=== PATIENT | female | born 1945 | race Hispanic/Latino ===

== ENCOUNTER 2016-12-27 05:52 | Emergency (ER) | payer MEDICARE, MEDICAID ==
[2016-12-27 05:56] VITALS: TEMP 98.9
[2016-12-27 05:59] VITALS: BMI 21.7
--- NOTE | 2016-12-27 06:17 | ED PDOC ---
Arrival/HPI - General Chief Complaint: Trauma Time Seen by Provider: 12/27/16 06:02 Historian: Snf - History of Present Illness Narrative History of Present Illness (Text): 12/27/16 06:13 Zeina Corado is a 71 year old female, whose past medical history includes bilateral BKA, CABG, CAD, dementia, anemia, chronic kidney disease, blindness, and depression, who presents to the Emergency department transferred from the halfway status post unwitnessed fall. As per halfway documentation, patient was found on the floor, unknown if there was any loss of consciousness. Patient is confused as to what happened, states she believes she fell "because the floor was slippery." Patient reports some discomfort to her left knee, denies any other complaints. Limited HPI and ROS secondary to patient's dementia. Time/Duration: Other (tonight) Symptom Onset: Gradual Symptom Course: Unchanged Activities at Onset: Light Context: Other (snf) Past Medical History - Provider Review Nursing Documentation Reviewed: Yes - Infectious Disease Hx of Infectious Diseases: None - Reproductive Menopause: Yes - Cardiac Hx Cardiac Disorders: Yes Hx Angina: Yes Hx Congestive Heart Failure: Yes Hx VT: Yes Hx Hypertension: Yes - Pulmonary Hx Respiratory Disorders: No - Neurological Hx Neurological Disorder: Yes (DM neuropathy) - HEENT Hx Blind: Yes (both eyes) Hx Cataracts: Yes Hx Glaucoma: Yes Other/Comment: Retinal Detachment - Renal Hx Renal Disorder: No - Endocrine/Metabolic Hx Diabetes Mellitus Type 2: Yes - Hematological/Oncological Hx Blood Disorders: No Hx Anemia: Yes - Integumentary Hx Dermatological Disorder: No - Musculoskeletal/Rheumatological Hx Arthritis: Yes - Gastrointestinal Hx Gastrointestinal Disorders: No - Genitourinary/Gynecological Hx Genitourinary Disorders: No - Psychiatric Hx Psychophysiologic Disorder: No Hx Depression: Yes Hx Substance Use: No - Surgical History Hx Coronary Artery Bypass Graft: Yes (x 2, 6-7weeks ago) Other/Comment: s/p BKA L and R leg - Anesthesia Hx Anesthesia: Yes Hx Anesthesia Reactions: No Hx Malignant Hyperthermia: No - Suicidal Assessment Feels Threatened In Home Enviroment: No Family/Social History - Physician Review Nursing Documentation Reviewed: Yes Family/Social History: Unknown Family HX Smoking Status: Never Smoked Hx Alcohol Use: No Hx Substance Use: No Allergies/Home Meds Allergies/Adverse Reactions: Allergies No Known Allergies Allergy (Verified 12/27/16 06:08) Home Medications: Home Meds Medication Instructions Recorded Confirmed Aspirin 81 mg PO DAILY 07/25/13 10/31/13 Lopressor 50 mg PO Q12H 07/25/13 10/31/13 Multivitamin 1 tab PO DAILY 07/25/13 10/31/13 Timolol 0.5% Ophth 1 drop OU DAILY 07/25/13 10/31/13 Xalatan Opht 1 drop OU DAILY 07/25/13 10/31/13 Xeroform Gauze 1 dose TOP DAILY 07/25/13 10/31/13 Ascorbic Acid 500 mg PO DAILY 08/31/13 10/31/13 Brimonidine 0.2% [Alphagan 0.2% 1 drop OU DAILY 08/31/13 10/31/13 Opht] Cyproheptadine HCl 4 mg PO HS 08/31/13 10/31/13 Docusate Sodium [Colace] 100 mg PO BID PRN 08/31/13 10/31/13 Famotidine [Pepcid] 20 mg PO DAILY 08/31/13 10/31/13 Latanoprost 0.005% Opht [Xalatan 1 drop OU HS 08/31/13 10/31/13 Opht] Metoprolol Tartrate 50 mg PO Q12 08/31/13 10/31/13 Milk Of Magnesia 30 ml PO Q24H PRN 08/31/13 10/31/13 Multivitamin with Minerals 1 tab PO DAILY 08/31/13 10/31/13 [Multivitamins with Minerals] Rosuvastatin Calcium [Crestor] 10 mg PO HS 08/31/13 10/31/13 Acetaminophen [Tylenol] 325 mg PO Q4H PRN 09/01/13 10/31/13 Acetaminophen [Tylenol] 325 mg PO Q4H PRN 09/01/13 10/31/13 Calcium Acetate [Phoslo] 667 mg PO DAILY 09/01/13 10/31/13 Famotidine [Pepcid] 20 mg PO DAILY 09/01/13 10/31/13 Rivaroxaban [Xarelto] 20 mg PO DAILY 09/01/13 10/31/13 Tramadol Hydrochloride [Tramadol 50 mg PO Q6 PRN 09/01/13 10/31/13 HCl] Review of Systems - Review of Systems Systems not reviewed;Unavailable: Dementia Musculoskeletal: Arthralgias (+left knee discomfort) Physical Exam Vital Signs Reviewed: Yes Vital Signs Temp Pulse Resp BP Pulse Ox 12/27/16 05:55 98.9 F 66 18 174/86 H 97 Temperature: Afebrile Blood Pressure: Hypertensive Pulse: Regular Respiratory Rate: Normal Appearance: Positive for: Well-Appearing, Non-Toxic, Comfortable Pain Distress: None Mental Status: Positive for: Confused - Systems Exam Head: Present: Atraumatic, Normocephalic Pupils: Present: Other (Bilateral blindness) Extroacular Muscles: Present: EOMI Conjunctiva: Present: Normal Mouth: Present: Moist Mucous Membranes Neck: Present: Normal Range of Motion. No: Meningeal Signs, MIDLINE TENDERNESS , Paraspinal Tenderness Respiratory/Chest: Present: Clear to Auscultation, Good Air Exchange. No: Respiratory Distress, Accessory Muscle Use Cardiovascular: Present: Regular Rate and Rhythm, Normal S1, S2. No: Murmurs Abdomen: Present: Normal Bowel Sounds. No: Tenderness, Distention, Peritoneal Signs Upper Extremity: Present: Normal Inspection. No: Cyanosis, Edema Lower Extremity: Present: NORMAL PULSES, Normal ROM, Neurovascularly Intact, Capillary Refill < 2 s, Other (Bilateral BKA, contusion to left knee). No: Edema Neurological: Present: GCS=15, CN II-XII Intact, Speech Normal Skin: Present: Warm, Dry, Normal Color. No: Rashes Psychiatric: Present: Other (Confused) Medical Decision Making ED Course and Treatment: 12/27/16 06:13 Impression: 71 year old female sent from halfway s/p unwitnessed fall tonight. Plan: -- CT Head w/o contrast -- EKG -- Chest X-ray -- XR Left Knee -- Labs, cardiac enzymes -- Reassess and disposition Progress Notes: Reviewed EKG, NSR at 65 bpm. RBBB. Inferior infarct. Non-specific ST/T wave changes. - RAD Interpretation Radiology Orders: 12/27/16 06:31 HEAD W/O CONTRAST [CT] Stat CHEST PORTABLE [RAD] Stat 12/27/16 06:32 KNEE WITH PATELLA LEFT 3 VIEW [RAD] Stat - EKG Interpretation Interpreted by ED Physician: Yes Type: 12 lead EKG - Transfer of Care Patient signed out to Dr:: Tolerico Pending Labs:: Labs/Chest X-ray/CT Head/Knee xray/reassess/final disposition - Scribe Statement The provider has reviewed the documentation as recorded by the Darekibaugusto Valentin Provider Scribe Attestation: All medical record entries made by the Scribe were at my direction and personally dictated by me. I have reviewed the chart and agree that the record accurately reflects my personal performance of the history, physical exam, medical decision making, and the department course for this patient. I have also personally directed, reviewed, and agree with the discharge instructions and disposition. Disposition/Present on Arrival - Present on Arrival Any Indicators Present on Arrival: No History of DVT/PE: No History of Uncontrolled Diabetes: No Urinary Catheter: No History of Decub. Ulcer: No History Surgical Site Infection Following: None - Disposition Have Diagnosis and Disposition been Completed?: No Diagnosis: Unwitnessed fall Disposition Time: 07:00 Condition: STABLE Referrals: Erin Simon MD [Primary Care Provider] - Follow up with primary Forms: [employer] (Chinese)
[2016-12-27 06:43] LABS: HEMATOCRIT 33.9 % (36.0-48.0); MEAN CELL VOLUME 99.1 fl (80.0-105.0); MEAN CORPUSCULAR HEMOGLOBIN 32.5 pg (25.0-35.0); MEAN CORPUSCULAR HGB CONC 32.7 g/dl (31.0-37.0); MEAN PLATELET VOLUME 11.8 fl (7.0-11.0); RED CELL DISTRIBUTION WIDTH 12.4 % (11.5-14.5); WHITE BLOOD COUNT 10.8 10^3/ul (4.5-11.0)
[2016-12-27 06:46] LABS: ALB/GLOB RATIO 1.1 (1.1-1.8); ALKALINE PHOSPHATASE 47 U/L (38-126); ALT/SGPT 22 U/L (7-56); AST/SGOT 23 U/L (14-36); BILIRUBIN,TOTAL 0.5 mg/dL (0.2-1.3); BLOOD UREA NITROGEN 46 mg/dL (7-21); CALCIUM 9.5 mg/dL (8.4-10.5); CARBON DIOXIDE 24 mmol/L (21-33); CHLORIDE 110 mmol/L (98-107); GFR AFRICAN-AMERICAN 49; GLUCOSE,RANDOM 177 mg/dL (70-110); POTASSIUM 4.7 mmol/L (3.6-5.0); SODIUM 144 mmol/L (132-148); TOTAL PROTEIN 7.9 g/dL (5.8-8.3)
[2016-12-27 06:52] LABS: INR 0.95 (0.93-1.08)
[2016-12-27 06:53] LABS: PARTIAL THROMBOPLASTIN TIME 31.7 Seconds (25.1-36.5)
[2016-12-27 06:57] LABS: TROPONIN I < 0.01 ng/mL
--- NOTE | 2016-12-27 08:35 | CT ---
PROCEDURE: CT HEAD WITHOUT CONTRAST. HISTORY: fall COMPARISON: None available. TECHNIQUE: Axial computed tomography images were obtained through the head/brain without intravenous contrast. Radiation dose: Total exam DLP = 775.01 mGy-cm. This CT exam was performed using one or more of the following dose reduction techniques: Automated exposure control, adjustment of the mA and/or kV according to patient size, and/or use of iterative reconstruction technique. FINDINGS: HEMORRHAGE: No intracranial hemorrhage. BRAIN: No mass effect or edema. Mild atrophy. Mild periventricular white matter lucency consistent with chronic microvascular ischemic change. Small lacunar infarct in the right frontal yañez radiata. No evidence of acute infarct. VENTRICLES: Unremarkable. No hydrocephalus. CALVARIUM: Unremarkable. PARANASAL SINUSES: Air-fluid level in the sphenoid sinuses. Please correlate for any concern regarding acute sphenoid sinusitis. MASTOID AIR CELLS: Unremarkable as visualized. No inflammatory changes. OTHER FINDINGS: None. IMPRESSION: No intracranial mass, hemorrhage or evidence of acute infarct. Possible sphenoid sinusitis. Please correlate clinically. Chronic white matter ischemic change. Age-appropriate atrophy. Preliminary interpretation of this examination was reported by [facility] at 8:14 a.m. on 12/27/2016. There is concurrence of this report with the preliminary interpretation.
[2016-12-27 08:41] VITALS: PULSE 64; O2SAT 98
--- NOTE | 2016-12-27 08:43 | RAD ---
HISTORY: fall COMPARISON: No prior. FINDINGS: LUNGS: No active pulmonary disease. PLEURA: No significant pleural effusion identified, no pneumothorax apparent. CARDIOVASCULAR: Status post CABG. Normal heart size. No congestive change. OSSEOUS STRUCTURES: No significant abnormalities. VISUALIZED UPPER ABDOMEN: Normal. OTHER FINDINGS: None. IMPRESSION: No active disease.
--- NOTE | 2016-12-27 08:44 | RAD ---
PROCEDURE: Left Knee Radiographs. HISTORY: Pain. COMPARISON: None. FINDINGS: BONES: Patient is status post amputation of the lower extremity below the knee. There is no osseous fracture. JOINTS: Normal. No osteoarthritis. JOINT EFFUSION: None. OTHER FINDINGS: Extensive vascular calcification is noted. IMPRESSION: Status post left BKA. No acute abnormality.
[2016-12-27 10:02] VITALS: BP 145/72; RESP 12
--- NOTE | 2016-12-27 14:53 | CARD ---
APPROVED REPORT EKG Measurement Heart [id number] [id number] <Conclusion> Normal sinus rhythm Right bundle branch block Inferior infarct, age undetermined Abnormal ECG
== END 2016-12-27 10:05 | disposition home or self-care (01) ==
LOC: ED 05:52
DX: Z04.3 Encounter for examination and observation following other accident (principal); W19.XXXA Unspecified fall, initial encounter; Y92.129 Unspecified place in nursing home as the place of occurrence of the external cause; I25.2 Old myocardial infarction; I10 Essential (primary) hypertension; E11.9 Type 2 diabetes mellitus without complications; Z89.512 Acquired absence of left leg below knee; Z89.511 Acquired absence of right leg below knee

== ENCOUNTER 2017-06-18 04:29 | Emergency (ER) | payer MEDICARE, MEDICAID ==
[2017-06-18 04:31] VITALS: BMI 41.8
--- NOTE | 2017-06-18 05:27 | ED PDOC ---
Arrival/HPI - General Historian: Patient - History of Present Illness Time/Duration: Prior to Arrival Symptom Onset: Sudden Symptom Course: Unchanged <Medhat Peguero - Last Filed: 06/18/17 06:49> <Elder Juarez - Last Filed: 06/18/17 07:02> - General Chief Complaint: Trauma Time Seen by Provider: 06/18/17 04:35 - History of Present Illness Narrative History of Present Illness (Text): 06/18/17 05:25 71 F with B/L BKA with history of fall from bed in past,past medical history includes bilateral BKA, CABG, CAD, dementia, anemia, CKD, blindness of right eye , depression presents today with complaints of fall. Patient states she did not lose consciousness and was awake entire time fall was occurring. Patient is not exactly certain on how the fall happened in the first place, states she possibly rolled over or due to being near the edge of the bed when she turned, caused her to fall. Patient admits to left sided hip discomfort. Patient also endorses lower back pain. Denies loss of consciousness, dizziness, weakness, shortness of breath. (Medhat Peguero) Past Medical History - Provider Review Nursing Documentation Reviewed: Yes - Infectious Disease Hx of Infectious Diseases: None - Cardiac Hx Cardiac Disorders: Yes Hx Angina: Yes Hx Congestive Heart Failure: Yes Hx ID: Yes Hx Hypertension: Yes - Pulmonary Hx Respiratory Disorders: No - Neurological Hx Neurological Disorder: Yes (DM neuropathy) - HEENT Hx Blind: Yes - Renal Hx Renal Disorder: No - Endocrine/Metabolic Hx Diabetes Mellitus Type 2: Yes - Hematological/Oncological Hx Blood Disorders: No Hx Anemia: Yes - Integumentary Hx Dermatological Disorder: No - Musculoskeletal/Rheumatological Hx Arthritis: Yes - Gastrointestinal Hx Gastrointestinal Disorders: No - Genitourinary/Gynecological Hx Genitourinary Disorders: No - Psychiatric Hx Psychophysiologic Disorder: No Hx Depression: Yes Hx Substance Use: No - Surgical History Other/Comment: s/p BKA L leg - Anesthesia Hx Anesthesia: Yes Hx Anesthesia Reactions: No Hx Malignant Hyperthermia: No - Suicidal Assessment Feels Threatened In Home Enviroment: No <Medhat Peguero - Last Filed: 06/18/17 06:49> Family/Social History - Physician Review Nursing Documentation Reviewed: Yes Family/Social History: Other (non-contributory) Smoking Status: Never Smoked Hx Alcohol Use: No Hx Substance Use: No <Medhat Peguero - Last Filed: 06/18/17 06:49> Allergies/Home Meds <Medhat Peguero - Last Filed: 06/18/17 06:49> <Elder Juarez - Last Filed: 06/18/17 07:02> Allergies/Adverse Reactions: Allergies No Known Allergies Allergy (Verified 12/27/16 06:08) Home Medications: Home Meds Medication Instructions Recorded Confirmed Acetaminophen [Tylenol 325mg tab] 650 mg PO Q4 PRN 12/27/16 12/27/16 Atorvastatin [Lipitor] 40 mg PO HS 12/27/16 12/27/16 Cholecalciferol (Vitamin D3) 50,000 unit PO WED 12/27/16 12/27/16 [Vitamin D3] Docusate Sodium [Xavier' Stool 200 mg PO DAILY 12/27/16 12/27/16 Softener Laxative] Insulin Lispro [humALOG] 100 unit SC BRKDIN 12/27/16 12/27/16 Latanoprost 0.005% Opht [Xalatan 1 drop OD HS 12/27/16 12/27/16 Opht] Magnesium Hydroxide [Milk Of 30 ml PO HS 12/27/16 12/27/16 Magnesia] Metoclopramide HCl [Reglan] 5 mg PO QID 12/27/16 12/27/16 Metoprolol Tartrate [Lopressor] 50 mg PO BID 12/27/16 12/27/16 Mirtazapine [Remeron] 15 mg PO HS 12/27/16 12/27/16 Pantoprazole [Protonix] 40 mg PO DAILY 12/27/16 12/27/16 Sennosides [Senna] 17.2 mg PO HS 12/27/16 12/27/16 Sertraline [Zoloft] 75 mg PO DAILY 12/27/16 12/27/16 Review of Systems - Physician Review All systems were reviewed & negative as marked: Yes - Review of Systems Constitutional: Normal. absent: Fatigue, Fevers Eyes: Normal. absent: Vision Changes ENT: Normal Respiratory: Normal. absent: SOB, Cough Cardiovascular: Normal. absent: Chest Pain, Palpitations Gastrointestinal: Normal. absent: Abdominal Pain, Diarrhea Musculoskeletal: Back Pain. absent: Neck Pain Neurological: Normal. absent: Headache, Dizziness, Focal Weakness Psychiatric: absent: Anxiety <Medhat Peguero - Last Filed: 06/18/17 06:49> Physical Exam Vital Signs Reviewed: Yes Temperature: Afebrile Blood Pressure: Hypertensive Pulse: Regular Respiratory Rate: Normal Appearance: Positive for: Well-Appearing, Non-Toxic, Comfortable Pain Distress: None Mental Status: Positive for: Alert and Oriented X 3 - Systems Exam Head: Present: Atraumatic, Normocephalic Pupils: Present: PERRL Extroacular Muscles: Present: EOMI Conjunctiva: Present: Normal Mouth: Present: Moist Mucous Membranes Nose (External): Present: Atraumatic Respiratory/Chest: Present: Clear to Auscultation, Good Air Exchange Cardiovascular: Present: Regular Rate and Rhythm Abdomen: No: Tenderness, Distention, Normal Bowel Sounds Upper Extremity: Present: Normal Inspection Lower Extremity: No: Normal Inspection (bilateral bka) Neurological: Present: GCS=15, CN II-XII Intact, Speech Normal Psychiatric: Present: Alert, Oriented x 3, Normal Insight, Normal Concentration <Medhat Peguero - Last Filed: 06/18/17 06:49> Vital Signs Temp Pulse Resp BP Pulse Ox 06/18/17 04:30 98.5 F 57 L 18 181/63 H 100 Medical Decision Making Re-evaluation Time: 06:20 <Medhat Peguero - Last Filed: 06/18/17 06:49> <Elder Juarez - Last Filed: 06/18/17 07:02> ED Course and Treatment: Patient states she feels fine just has some mild hip discomfort. Radioimaging negative for fractures. 06/18/17 06:38 (Medhat Peguero) 06/18/17 05:29 Zeina Corado is a 71 year old female who presents to the emergency department for a complaint of left sided hip pain s/p fall. In agreement with resident note which includes additional HPI details. Patient was seen and evaluated with resident, came up with plan and treatment together. (Elder Juarez) - RAD Interpretation Radiology Orders: 06/18/17 04:46 HEAD W/O CONTRAST [CT] Stat Hip Left [HIP MIN 2V W/ PELVIS LT] [RAD] Stat 06/18/17 05:24 LS SPINE AP/LAT [RAD] Stat - Medication Orders Current Medication Orders: Discontinued Medications Tramadol HCl (Ultram) 50 mg PO STAT STA Stop: 06/18/17 05:36 Last Admin: 06/18/17 05:45 Dose: 50 mg MAR Pain Assessment Document 06/18/17 05:45 AD (Rec: 06/18/17 06:22 AD [id number]) Pain Reassessment Is this a pain reassessment? No Presence of Pain Presence of Pain Yes Pain Scale Used Pain Scale Used Numeric Location Upper or Lower Lower Description Pain Behavior Facial Grimacing - PA / [employer] / Resident Statement MD/DO has reviewed & agrees with the documentation as recorded. / has examined the patient and agrees with the treatment plan. <Elder Juarez - Last Filed: 06/18/17 07:02> Disposition/Present on Arrival - Present on Arrival Any Indicators Present on Arrival: No History of DVT/PE: No History of Uncontrolled Diabetes: No Urinary Catheter: No History of Decub. Ulcer: No History Surgical Site Infection Following: CABG - Mediastinitis - Disposition Have Diagnosis and Disposition been Completed?: Yes Disposition Time: 06:40 Patient Plan: Discharge <Medhat Peguero - Last Filed: 06/18/17 06:49> <Elder Juarez - Last Filed: 06/18/17 07:02> - Disposition Diagnosis: Accidental fall from bed Disposition: OTHER INSTITUTION Patient Problems: Current Active Problems Problem Status Onset Accidental fall from bed Acute Condition: GUARDED Additional Instructions: Ms. Corado, thank you for letting us take care of you today. You were treated for you hip pain status post fall. The emergency medical care you received today was directed at your acute symptoms. If you were prescribed any medication , please fill it and take as directed. It may take several days for your symptoms to resolve. Return to the Emergency Department if your symptoms worsen , do not improve, or if you have any other problems. Please contact your doctor or call one of the physicians/clinics you have been referred to that are listed on the Patient Visit Information form that is included in your discharge packet. Bring any paperwork you were given at discharge with you along with any medications you are taking to your follow up visit. Our treatment cannot replace ongoing medical care by a primary care provider (PCP) outside of the emergency department. Thank you for allowing the [facility] team to be part of your care today. If you had an X-Ray or CT scan: A Radiologist will review the ED reading if any change in treatment is needed we will contact you. If you had a blood, urine, or wound culture: It will take several days for the results, if any change in treatment is needed we will contact you. If you had an STI test: It will take 48 hours for the results. Please call after 1 week if you have not heard back. Forms: [employer] ([place]se)
[2017-06-18 07:24] VITALS: RESP 16
--- NOTE | 2017-06-18 08:13 | CT ---
PROCEDURE: CT HEAD WITHOUT CONTRAST. HISTORY: fall COMPARISON: None available. TECHNIQUE: Axial computed tomography images were obtained through the head/brain without intravenous contrast. Radiation dose: Total exam DLP = mGy-cm. This CT exam was performed using one or more of the following dose reduction techniques: Automated exposure control, adjustment of the mA and/or kV according to patient size, and/or use of iterative reconstruction technique. FINDINGS: HEMORRHAGE: No intracranial hemorrhage. BRAIN: No mass effect or edema. Mild chronic periventricular white matter ischemic disease. VENTRICLES: Unremarkable. No hydrocephalus. CALVARIUM: Unremarkable. PARANASAL SINUSES: Unremarkable as visualized. No significant inflammatory changes. MASTOID AIR CELLS: Unremarkable as visualized. No inflammatory changes. OTHER FINDINGS: None. IMPRESSION: No acute hemorrhage.
[2017-06-18 10:24] VITALS: BP 136/70; PULSE 63; TEMP 98; O2SAT 99
--- NOTE | 2017-06-18 10:28 | RAD ---
PROCEDURE: Left Hip and pelvis X-ray Radiographs. HISTORY: fall COMPARISON: None. FINDINGS: BONES: Normal. No fracture. JOINTS: Normal. SOFT TISSUES: Normal. OTHER FINDINGS: None. IMPRESSION: Negative study
--- NOTE | 2017-06-18 10:31 | RAD ---
PROCEDURE: Radiographs of the Lumbar Spine. HISTORY: fall COMPARISON: No prior. FINDINGS: BONES: Normal alignment. No listhesis. No fracture. DISC SPACES: Unremarkable. OTHER FINDINGS: There is facet arthropathy at L4-5 and L5-S1 IMPRESSION: Facet arthropathy at L4-5 and L5-S1. No acute finding
== END 2017-06-18 10:22 ==
LOC: ED 04:29
DX: Z03.89 Encounter for observation for other suspected diseases and conditions ruled out (principal); W06.XXXA Fall from bed, initial encounter; Y92.129 Unspecified place in nursing home as the place of occurrence of the external cause; I25.10 Atherosclerotic heart disease of native coronary artery without angina pectoris; I50.9 Heart failure, unspecified; I12.9 Hypertensive chronic kidney disease with stage 1 through stage 4 chronic kidney disease, or unspecified chronic kidney disease; N18.9 Chronic kidney disease, unspecified; E11.9 Type 2 diabetes mellitus without complications

== ENCOUNTER 2017-07-12 01:37 | Emergency (ER) | payer MEDICARE, MEDICAID ==
[2017-07-12 01:38] VITALS: BMI 41.8
[2017-07-12 01:44] VITALS: TEMP 98.6
--- NOTE | 2017-07-12 02:59 | ED PDOC ---
Arrival/HPI - General Chief Complaint: Trauma Time Seen by Provider: 07/12/17 02:20 Historian: Patient, [facility] - History of Present Illness Narrative History of Present Illness (Text): 07/12/17 02:58 Zeina Corado is a 71 year old female, whose past medical history bilateral BKA, CABG, CAD, and DVT, who presents to the Emergency department transferred from [facility] status post fall tonight. Patient states she slipped out of bed tonight on to her left side. Patient now complaining of left shoulder discomfort. Patient denies any loss of consciousness, fever, chills, chest pain, shortness of breath, nausea, vomiting, diarrhea, urinary symptoms, back pain, neck pain, headache, dizziness, or any other complaints. Time/Duration: Other (tonight) Symptom Onset: Gradual Symptom Course: Unchanged Activities at Onset: Light Past Medical History - Provider Review Nursing Documentation Reviewed: Yes - Infectious Disease Hx of Infectious Diseases: None - Reproductive Menopause: Yes - Cardiac Hx Cardiac Disorders: Yes Hx Angina: Yes Hx Congestive Heart Failure: Yes Hx MO: Yes Hx Hypertension: Yes - Pulmonary Hx Respiratory Disorders: No - Neurological Hx Neurological Disorder: Yes (DM neuropathy) - HEENT Hx Blind: Yes - Renal Hx Renal Disorder: No - Endocrine/Metabolic Hx Diabetes Mellitus Type 2: Yes - Hematological/Oncological Hx Blood Disorders: No Hx Anemia: Yes - Integumentary Hx Dermatological Disorder: No - Musculoskeletal/Rheumatological Hx Arthritis: Yes - Gastrointestinal Hx Gastrointestinal Disorders: No - Genitourinary/Gynecological Hx Genitourinary Disorders: No - Psychiatric Hx Psychophysiologic Disorder: No Hx Depression: Yes Hx Substance Use: No - Surgical History Other/Comment: s/p BKA L leg - Anesthesia Hx Anesthesia: Yes Hx Anesthesia Reactions: No Hx Malignant Hyperthermia: No - Suicidal Assessment Feels Threatened In Home Enviroment: No Family/Social History - Physician Review Nursing Documentation Reviewed: Yes Family/Social History: Unknown Family HX Smoking Status: Never Smoked Hx Alcohol Use: No Hx Substance Use: No Allergies/Home Meds Allergies/Adverse Reactions: Allergies No Known Allergies Allergy (Verified 07/12/17 01:57) Home Medications: Home Meds Medication Instructions Recorded Confirmed Acetaminophen [Tylenol 325mg tab] 650 mg PO Q4 PRN 12/27/16 07/12/17 Atorvastatin [Lipitor] 40 mg PO HS 12/27/16 07/12/17 Cholecalciferol (Vitamin D3) 50,000 unit PO WED 12/27/16 07/12/17 [Vitamin D3] Docusate Sodium [Xavier' Stool 200 mg PO DAILY 12/27/16 07/12/17 Softener Laxative] Insulin Lispro [humALOG] 100 unit SC BRKDIN 12/27/16 07/12/17 Latanoprost 0.005% Opht [Xalatan 1 drop OD HS 12/27/16 07/12/17 Opht] Magnesium Hydroxide [Milk Of 30 ml PO HS 12/27/16 07/12/17 Magnesia] Metoclopramide HCl [Reglan] 5 mg PO QID 12/27/16 07/12/17 Metoprolol Tartrate [Lopressor] 50 mg PO BID 12/27/16 07/12/17 Mirtazapine [Remeron] 15 mg PO HS 12/27/16 07/12/17 Pantoprazole [Protonix] 40 mg PO DAILY 12/27/16 07/12/17 Sennosides [Senna] 17.2 mg PO HS 12/27/16 07/12/17 Sertraline [Zoloft] 75 mg PO DAILY 12/27/16 07/12/17 Review of Systems - Physician Review All systems were reviewed & negative as marked: Yes - Review of Systems Constitutional: Normal. absent: Fevers Eyes: Normal ENT: Normal Respiratory: Normal. absent: SOB, Cough Cardiovascular: Normal. absent: Chest Pain Gastrointestinal: Normal. absent: Abdominal Pain, Diarrhea, Nausea, Vomiting Genitourinary Female: Normal. absent: Dysuria, Frequency, Hematuria, Urine Output Changes Musculoskeletal: Arthralgias (+left shoulder discomfort). absent: Back Pain, Neck Pain Skin: Normal. absent: Rash Neurological: Normal. absent: Headache, Dizziness Endocrine: Normal Hemo/Lymphatic: Normal Psychiatric: Normal Physical Exam Vital Signs Reviewed: Yes Vital Signs Temp Pulse Resp BP Pulse Ox 07/12/17 01:44 98.6 F 63 18 142/78 98 Temperature: Afebrile Blood Pressure: Normal Pulse: Regular Respiratory Rate: Normal Appearance: Positive for: Well-Appearing, Non-Toxic, Comfortable Pain Distress: None Mental Status: Positive for: Alert and Oriented X 3 - Systems Exam Head: Present: Atraumatic, Normocephalic Pupils: Present: PERRL Extroacular Muscles: Present: EOMI Conjunctiva: Present: Normal Mouth: Present: Moist Mucous Membranes Neck: Present: Normal Range of Motion Respiratory/Chest: Present: Clear to Auscultation, Good Air Exchange. No: Respiratory Distress, Accessory Muscle Use Cardiovascular: Present: Regular Rate and Rhythm, Normal S1, S2. No: Murmurs Abdomen: No: Tenderness, Distention, Peritoneal Signs Back: Present: Normal Inspection Upper Extremity: Present: Normal ROM, NORMAL PULSES, Tenderness (Minimal discomfort with left shoulder abduction), Neurovascularly Intact, Capillary Refill < 2s. No: Cyanosis, Edema, Swelling, Erythema, Temperature Abnormalties , Deformity Lower Extremity: Present: Normal Inspection (Bilateral BKAs). No: Edema Neurological: Present: GCS=15, CN II-XII Intact, Speech Normal Skin: Present: Warm, Dry, Normal Color. No: Rashes Psychiatric: Present: Alert, Oriented x 3, Normal Insight, Normal Concentration Medical Decision Making ED Course and Treatment: 07/12/17 02:58 Impression: 71 year old female complaining of left shoulder discomfort discomfort s/p fall. Plan: -- XR Left Shoulder -- Reassess and disposition Progress Notes: 07/12/17 04:32 XR Left Shoulder reviewed, shows no acute processes/no acute fractures. - RAD Interpretation Radiology Orders: 07/12/17 02:59 SHOULDER LEFT [RAD] [employer] Artist: ED Physician - Scribe Statement The provider has reviewed the documentation as recorded by the Louis Valentin Provider Scribe Attestation: All medical record entries made by the Scribe were at my direction and personally dictated by me. I have reviewed the chart and agree that the record accurately reflects my personal performance of the history, physical exam, medical decision making, and the department course for this patient. I have also personally directed, reviewed, and agree with the discharge instructions and disposition. Disposition/Present on Arrival - Present on Arrival Any Indicators Present on Arrival: No History of DVT/PE: No History of Uncontrolled Diabetes: No Urinary Catheter: No History of Decub. Ulcer: No History Surgical Site Infection Following: CABG - Mediastinitis - Disposition Have Diagnosis and Disposition been Completed?: Yes Diagnosis: Shoulder strain Disposition: TRANSF TO SNF Disposition Time: 04:39 Patient Plan: Discharge Condition: GOOD Discharge Instructions (ExitCare): Muscle Strain (DC) Additional Instructions: Tylenol as directed/follow up with your doctor this week Forms: [employer] (Greenlandic)
[2017-07-12 04:38] VITALS: O2SAT 97
[2017-07-12 07:33] VITALS: BP 140/79; PULSE 69; RESP 14
--- NOTE | 2017-07-12 10:41 | RAD ---
PROCEDURE: Radiographs of the Left Shoulder HISTORY: fall COMPARISON: No prior. FINDINGS: BONES: Normal. No fracture. JOINTS: Normal. Glenohumeral and acromioclavicular joints preserved. No osteoarthritis. SOFT TISSUES: Normal. OTHER FINDINGS: None. IMPRESSION: Normal radiographs of the left shoulder.
== END 2017-07-12 07:20 ==
LOC: ED 01:37
DX: S46.912A Strain of unspecified muscle, fascia and tendon at shoulder and upper arm level, left arm, initial encounter (principal); W06.XXXA Fall from bed, initial encounter; Y92.122 Bedroom in nursing home as the place of occurrence of the external cause